=== PATIENT | male | born 1945 | race Asian ===

== ENCOUNTER 2019-03-08 11:53 | Outpatient (CLI) | payer MEDICARE, OTHER | END 2019-03-08 11:54 | disposition critical access hospital (66) | LOC: EMS 11:53 | PROVIDERS: ATTEND Surgery | DX: F41.9 Anxiety disorder, unspecified (principal); R06.02 Shortness of breath; R51 Headache | CPT/HCPCS: A0425; A0429 ==

== ENCOUNTER 2019-03-08 12:23 | Emergency (ER) | payer MEDICARE, OTHER ==
[2019-03-08 12:38] VITALS: BP 139/101
--- NOTE | 2019-03-08 12:44 | ED Physician Documentation ---
PD HPI MHE - Stated complaint Stated Complaint: ANXIETY - Chief complaint Chief Complaint: MHE - History obtained from History obtained from: Patient, Family - History of Present Illness Primary symptom: Other (74-year-old gentleman with lung disease on oxygen, chronic anxiety. He ran out of his Ativan a few days ago and presents with anxiety. Per his domestic partner he was very anxious today and his blood pressure was high at 170/100. He also has had some pustular lesions on the upper lip over the last couple of days without fevers. He denies suicidal or homicidal ideation. He also declined to talk to the social and political studies professor or consider inpatient treatment for his anxiety) Review of Systems Constitutional: denies: Fever, Chills Cardiac: denies: Chest pain / pressure, Palpitations Respiratory: denies: Dyspnea, Cough PD PAST MEDICAL HISTORY - Past Medical History Past Medical History: Yes Cardiovascular: Hypertension Respiratory: Other Neuro: Parkinson's GI: GERD Psych: Anxiety Other Past Medical History: Interstitial Pulmonary Disease - Past Surgical History Past Surgical History: No - Present Medications Home Medications: Ambulatory Orders Medication Instructions Recorded Confirmed Clindamycin HCl [Clindamycin 300MG 300 mg PO Q6H #40 capsule 03/08/19 CAP] LORazepam [Ativan] 0.5 mg PO Q6H PRN #15 tablet 03/08/19 LORazepam [Lorazepam] 0.5 mg PO PRN PRN 03/08/19 03/08/19 Omeprazole 20 mg PO DAILY 03/08/19 03/08/19 predniSONE [Deltasone] 20 mg PO DAILY 03/08/19 03/08/19 - Allergies Allergies/Adverse Reactions: Allergies Allergy/AdvReac Type Severity Reaction Status Date / Time Sulfa (Sulfonamide Allergy Unknown Verified 03/08/19 12:51 Antibiotics) - Social History Does the pt smoke?: No Smoking Status: Never smoker Does the pt drink ETOH?: Yes Does the pt have substance abuse?: No - Immunizations Immunizations: TDAP >10years/unknown PD ED PE NORMAL - Vitals Vital signs reviewed: Yes - General General: Alert and oriented X 3, No acute distress - HEENT HEENT: Other (He is wearing oxygen by nasal cannula. 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 Also folliculitis on his lip. He declined to talk to the social and political studies professor and initially did not want a refill of his lorazepam but his domestic partner talked him into it. Departure - Departure Disposition: 01 Home, Self Care Clinical Impression: Anxiety, Folliculitis Condition: Good Record reviewed to determine appropriate education?: Yes Instructions: ED Stress React, ED Folliculitis Prescriptions: Clindamycin HCl [Clindamycin 300MG CAP] 300 mg PO Q6H #40 capsule LORazepam [Ativan] 0.5 mg PO Q6H PRN #15 tablet PRN Reason: Anxiety Comments: Keep a close eye on the lip lesions, if worse return or follow-up with your doctor for recheck. Especially if you run a fever. Follow-up with your doctor regardless in 2 to 3 days for recheck. Continue current medications otherwise adding the antibiotic for the folliculitis on her lip. Return anytime if your anxiety is worse or if you become suicidal or homicidal.
== END 2019-03-08 13:00 | disposition home or self-care (01) ==
LOC: EDUNIT# → ED 12:23
DX: F41.9 Anxiety disorder, unspecified (principal); L73.9 Follicular disorder, unspecified; I10 Essential (primary) hypertension; J84.9 Interstitial pulmonary disease, unspecified; Z99.81 Dependence on supplemental oxygen; G20 Parkinson's disease
CPT/HCPCS: 99283